=== PATIENT | male | born 1955 | race Caucasian/White ===

== ENCOUNTER 2023-05-02 12:59 | Emergency (ER) | payer MEDICAID ==
[~2023-05-02] VITALS: Ht 172.7 cm; Wt 108.0 kg
[2023-05-02 13:30] VITALS: O2SAT 100
[2023-05-02] MEDS ORDERED: TETANUS, DIPHTHERIA, PERTUSSIS VAC/PF 0.5ML (>10YR OLD) IM ONE (13:30)
[2023-05-02] MEDS ORDERED: HYDROCODONE/ACETAMINOPHEN 5/325MG TABLET PO ONE ×2 (13:45→18:45)
[2023-05-02] MEDS ORDERED: LIDOCAINE HCL/EPINEPHRINE 1%-EPI 1:100,000 20 ML VIAL INFIL ONE ×2 (13:45→15:15)
[2023-05-02] MEDS ORDERED: CEFAZOLIN 1000MG PREMIX 50 ML IV ONE (16:45)
[2023-05-02] MEDS ORDERED: CEPH500T MT (17:29)
[2023-05-02] MEDS ORDERED: IBUP-2030 MT (17:29)
[2023-05-02] MEDS ORDERED: IBUPROFEN 600MG TABLET PO ONE (18:30)
[2023-05-02] MEDS ORDERED: IBUP-2029 MT (18:38)
[2023-05-02 19:02] VITALS: BP 133/68; PULSE 68; RESP 17
== END 2023-05-02 19:45 | disposition home or self-care (01) ==
LOC: ER 12:59
DX: S81.812A Laceration without foreign body, left lower leg, initial encounter (principal); X58.XXXA Exposure to other specified factors, initial encounter; Y93.89 Activity, other specified; Y92.89 Other specified places as the place of occurrence of the external cause; Y99.8 Other external cause status
CPT/HCPCS: 73590; 90715; 12006; 90471; 96365; 99284; J0690; Z7610 ×4; J3490

== ENCOUNTER 2023-05-18 11:51 | Emergency (ER) | payer MEDICAID ==
[~2023-05-18] VITALS: Ht 177.8 cm; Wt 100.0 kg
[~2023-05-18 11:51] MED LIST: CEPH500T MT; IBUP-2029 MT
[2023-05-18 12:00] VITALS: BP 165/79; PULSE 80; RESP 16; TEMP 98.7; O2SAT 95
== END 2023-05-18 18:08 | disposition left against medical advice (07) ==
LOC: ER 11:51
DX: I96 Gangrene, not elsewhere classified (principal)
CPT/HCPCS: 73590; 99283; Z7610 ×2